=== PATIENT | female | born 1930 | race Caucasian/White ===

== ENCOUNTER 2016-12-16 18:50 | Emergency (ER) | payer MEDICAID ==
[~2016-12-16] VITALS: Ht 162.6 cm; Wt 60.0 kg
[~2016-12-16 18:50] MED LIST: ASPI-664 PO; ATOR20TA38 PO; BACTDS PO; HYD25 PO; LANT3I SC; METO-429 PO
[2016-12-16 19:43] VITALS: Ht 162.6 cm; Wt 60.0 kg
[2016-12-16] MEDS ORDERED: TETRACAINE 0.5% 15 ML OPH BOTH EYES ONE (22:00)
--- NOTE | 2016-12-17 00:26 | RADRPT ---
PROCEDURE: CT BRAIN WITHOUT CONTRAST CLINICAL INDICATION: 86-year-old female with right temporal headaches and ear pain. TECHNIQUE: The study was performed utilizing [employer] VCT 64-slice CT scanner. Direct axial sections were obtained from the foramen magnum to the vertex without the use of intravenous contrast material. Sagittal and coronal reformations were obtained. Automated exposure control and iterativ e reconstruction techniques were utilized for this examination. The images were viewed on a PACS [employer]. CTD/vol = 42.9 mGy; Total Exam DLP = 810.3 mGy-cm. COMPARISON: None. FINDINGS: There is moderate degree of diffuse cortical and central atrophy with compensatory ventricular enlar gement. There is no evidence for mass effect or midline shift. There are periventricular areas of decreased density consistent with microangiopathic ischemic changes. There is no evidence for acute intra or extra-axial blood. Calcifications are seen within the intracranial carotid and vertebral a rteries bilaterally. The bony calvarium is intact. Vascular calcifications identified within the sca lp. There is mucosal thickening and air fluid levels identified within the left frontal sinus. There is mild mucosal thickening within the dependent portion of the maxillary sinuses bilaterally. The mastoid air cells and middle ears are without significant soft tissue. IMPRESSION: 1. Moderate diffuse atrophy. 2. Microangiopathic ischemic changes. 3. Vascular calcifications. 4. Left frontal sinus disease. .Pineda Singh MD, Date Time Electronically viewed and signed by .Pineda Singh MD, on 12/17/2016 00:26 .M/
--- NOTE | 2016-12-17 00:30 | ERD ---
ER Documentation Chief Complaint Date/Time DATE: 12/17/16 TIME: 00:28 Chief Complaint right ear pain w/ sore throat x 1 week HPI This is an 86-year-old female presents to the emergency room for evaluation of right-sided ear pain and sore throat for 1 weeks duration. Patient states that the ear pain is an achy pain sharp pain and she does hear a popping in her right ear. She denies any radiation of the pain. Denies any fever and came to the ER for evaluation. She is also denying any trauma to the ear or hearing loss ROS All systems reviewed and are negative except as per history of present illness. Medications Home Meds Reported Medications Hydrochlorothiazide* (Hydrochlorothiazide*) 25 Mg Tab, 25 MG PO DAILY, #30 TAB 10/17/16 Metoprolol Tartrate* (Lopressor*) 50 Mg Tab, 50 MG PO BID, #60 TAB 10/17/16 Atorvastatin Calcium* (Atorvastatin Calcium*) 20 Mg Tablet, 20 MG PO QHS, #30 TAB 10/17/16 Aspirin* (Aspirin* EC) 81 Mg Tablet.dr, 81 MG PO DAILY, TAB 10/17/16 Insulin Glargine* (Lantus*) 100 Unit/Ml Soln, 30 UNIT SC QHS, #1 VIAL 10/17/16 Discontinued Scripts Sulfamethoxazole-Trimethoprim* (Bactrim* DS) 800-160 Mg Tab, 1 TAB PO BID for 10 Days, TAB Prov:KELSEY ZACARIAS DO 10/17/16 Allergies Allergies: Coded Allergies: No Known Allergy (Unverified , 12/16/16) PMhx/Soc History of Surgery: Yes (RT HIP SURGERY ) Anesthesia Reaction: No Hx Neurological Disorder: No Hx Respiratory Disorders: No Hx Cardiac Disorders: No Hx Psychiatric Problems: No Hx Miscellaneous Medical Probl: Yes (DM, DYSLIPIDEMIA) Hx Alcohol Use: No Hx Substance Use: No Hx Tobacco Use: No Smoking Status: Never smoker Physical Exam Vitals Vital Signs Date Time Temp Pulse Resp B/P Pulse Ox O2 Delivery O2 Flow Rate FiO2 12/16/16 19:43 98.3 54 20 132/55 97 Physical Exam Const: No acute distress Head: Atraumatic Eyes: Normal Conjunctiva ENT: Right tympanic membrane mildly erythematous compared to the left, no mastoid bone tenderness normal External Ears, Nose and Mouth. Neck: Full range of motion..~ No meningismus. Resp: Clear to auscultation bilaterally Cardio: Regular rate and rhythm, no murmurs Abd: Soft, non tender, non distended. Normal bowel sounds Skin: No petechiae or rashes Back: No midline or flank tenderness Ext: No cyanosis, or edema Neur: Awake and alert Psych: Normal Mood and Affect Results 24 hrs Current Medications Medications (Trade) Dose Ordered Sig/Crow Route PRN Reason Start Time Stop Time Status Last Admin Dose Admin Tetracaine HCl (Tetracaine 0.5% Oph) 1 drop ONCE ONCE BOTH EYES 12/16/16 22:00 12/16/16 22:01 DC Procedures/MDM CT head without: 1. Moderate diffuse atrophy. 2. Microangiopathic ischemic changes. 3. Vascular calcifications. 4. Left frontal sinus disease. This 86-year-old female presents to the ER for evaluation of right-sided ear pain. I did note mild erythema of the right eardrum compared to the left. The patient was given tetracaine eardrops with moderate relief of her pain. CT of her head is normal does not show any acute bleeding. The patient will be discharged at this time with a prescription for amoxicillin at this time and instructions to follow-up with her primary care physician. She will also be given Tylenol 3 for breakthrough pain Departure Diagnosis: Primary Impression: Otitis media, right Additional Impression: Multiple complaints Condition: Stable KELSEY ZACARIAS DO Dec 17, 2016 00:30
[2016-12-17] MEDS ORDERED: ACET1TAB40 PO (00:31)
[2016-12-17] MEDS ORDERED: AMO500 PO (00:31)
[2016-12-17] MEDS ORDERED: NPH10OT RIGHT EAR (00:31)
[2016-12-17 00:45] VITALS: BP 135/58; PULSE 55; RESP 20; TEMP 98.3
== END 2016-12-17 00:45 | disposition home or self-care (01) ==
LOC: E/R 18:50
DX: H92.01 Otalgia, right ear (principal); J02.9 Acute pharyngitis, unspecified; E11.9 Type 2 diabetes mellitus without complications; R51 Headache; Z79.4 Long term (current) use of insulin; Z79.82 Long term (current) use of aspirin
CPT/HCPCS: 70450; Z7502; Z7610

== ENCOUNTER 2016-12-27 16:58 | Emergency (ER) | payer MEDICAID ==
[~2016-12-27] VITALS: Wt 59.8 kg
[~2016-12-27 16:58] MED LIST changes: +ACET1TAB40 PO; +AMO500 PO; -BACTDS PO; +NPH10OT RIGHT EAR
[2016-12-27] MEDS ORDERED: SOD CHLORIDE 0.9% 500 ML IV STA (17:15)
[2016-12-27 17:54] LABS: BASOPHILS % 0.1 % (0.0-2.0); EOSINOPHILS # 0.1 10^3/ul (0.0-0.5); EOSINOPHILS % 1.5 % (0.0-7.0); HEMATOCRIT 31.8 % (37.0-47.0); HEMOGLOBIN 10.9 g/dl (12.0-16.0); LYMPHOCYTES % 11.9 % (15.0-51.0); MEAN CORPUSCULAR HEMOGLOBIN 31.7 pg (29.0-33.0); MEAN CORPUSCULAR HGB CONC 34.2 g/dl (32.0-37.0); MEAN CORPUSCULAR VOLUME 92.8 fl (82.0-101.0); MEAN PLATELET VOLUME 9.6 fl (7.4-10.4); MONOCYTE # 0.3 10^3/ul (0.3-0.9); MONOCYTES % 3.6 % (0.0-11.0); NEUTROPHIL # 7.1 10^3/ul (1.6-7.5); NEUTROPHILS % 82.9 % (39.0-77.0); PLATELET COUNT 127 10^3/UL (140-440); RED BLOOD COUNT 3.43 10^6/ul (4.20-5.40); RED CELL DISTRIBUTION WIDTH 13.1 % (11.5-14.5); UNCORRECTED WBC 8.6 10^3/ul (4.8-10.8); WHITE BLOOD COUNT 8.6 10^3/ul (4.8-10.8)
[2016-12-27 17:55] LABS: CONDITION 1
[2016-12-27 18:02] LABS: ALBUMIN 4.1 g/dl (3.3-4.9); POTASSIUM 4.4 mmol/L (3.5-5.1)
[2016-12-27 18:04] LABS: ALBUMIN/GLOBULIN RATIO 1.13; BILIRUBIN,INDIRECT 0.6 mg/dl (0-1.1); BILIRUBIN,TOTAL 0.6 mg/dl (0.2-1.3); CREATININE 1.33 mg/dl (0.44-1.00); TOTAL PROTEIN 7.7 g/dl (6.1-8.1)
[2016-12-27 18:05] LABS: CALCIUM 9.1 mg/dl (8.4-10.2)
--- NOTE | 2016-12-27 18:49 | ERD ---
ER Documentation Chief Complaint Date/Time DATE: 12/27/16 TIME: 18:47 Chief Complaint DIARRHEA, ABD PAIN, NO VOMITING HPI This is an 86-year-old female presents to the emergency room for diarrhea and abdominal cramping for 1 days duration. Patient denies any nausea, vomiting or blood in her stool. The patient has been drinking Pedialyte and denies any trauma to the abdomen and came to the emergency room for further evaluation. ROS All systems reviewed and are negative except as per history of present illness. Medications Home Meds Active Scripts Acetaminophen with Codeine (Acetaminophen-Cod #3 Tablet) 1 Each Tablet, 1 TAB PO Q6H, #7 TAB Prov:RELLGRACIELAPATRICE DO 12/17/16 Neomycin/Polymyxin/Hydrocort* (Cortisporin* Otic) 10 Ml Susp, 4 DROP RIGHT EAR QID for 7 Days, EA Prov:KELSEY ZACARIAS DO 12/17/16 Amoxicillin* (Amoxicillin*) 500 Mg Cap, 500 MG PO TID for 7 Days, CAP Prov:KELSEY ZACARIAS DO 12/17/16 Reported Medications Hydrochlorothiazide* (Hydrochlorothiazide*) 25 Mg Tab, 25 MG PO DAILY, #30 TAB 10/17/16 Metoprolol Tartrate* (Lopressor*) 50 Mg Tab, 50 MG PO BID, #60 TAB 10/17/16 Atorvastatin Calcium* (Atorvastatin Calcium*) 20 Mg Tablet, 20 MG PO QHS, #30 TAB 10/17/16 Aspirin* (Aspirin* EC) 81 Mg Tablet.dr, 81 MG PO DAILY, TAB 10/17/16 Insulin Glargine* (Lantus*) 100 Unit/Ml Soln, 30 UNIT SC QHS, #1 VIAL 10/17/16 Allergies Allergies: Coded Allergies: No Known Allergy (Unverified , 12/16/16) PMhx/Soc History of Surgery: Yes (RT HIP SURGERY ) Anesthesia Reaction: No Hx Neurological Disorder: No Hx Respiratory Disorders: No Hx Cardiac Disorders: No Hx Psychiatric Problems: No Hx Miscellaneous Medical Probl: Yes (DM, DYSLIPIDEMIA) Hx Alcohol Use: No Hx Substance Use: No Hx Tobacco Use: No Smoking Status: Never smoker Physical Exam Vitals Vital Signs Date Time Temp Pulse Resp B/P Pulse Ox O2 Delivery O2 Flow Rate FiO2 12/27/16 17:00 98.5 88 18 190/77 99 Physical Exam INITIAL VITAL SIGNS: Reviewed by me GENERAL: The patient is well developed and appropriate for usual state of health in no apparent distress HEENT: Pupils equal, round, and reactive to light. EOMI. There is no scleral icterus. NECK: C-spine is soft and supple, there is no meningismus. There is no cervical lymphadenopathy. LUNGS: Clear to auscultation bilaterally. There are no rales, wheezes or rhonchi. HEART: Regular rate and rhythm, no murmurs, clicks, rubs or gallops. ABDOMEN: Soft, non-tender, non-distended. There are bowel sounds in all four quadrants. No rebound or guarding. EXTREMITIES: There is no peripheral cyanosis or edema. No focal swelling or erythema. NEUROLOGICAL: The patient moves all four extremities with 5/5 strength. Cranial nerves II - XII are intact. Normal gait. Alert and oriented SKIN: There is no apparent rash or petechiae. HEME/LYMPHATIC: There is no evidence of excessive bruising or lymphedema. PSYCHIATRIC: The patient does not appear anxious or depressed. Result Diagram: 12/27/16 17312/27/16 1730 Results 24 hrs Laboratory Tests Test 12/27/16 17:30 Alanine Aminotransferase (ALT/SGPT) 23IU/L Albumin 4.1g/dl Albumin/Globulin Ratio 1.13 Alkaline Phosphatase 91IU/L Anion Gap 17 Aspartate Amino Transf (AST/SGOT) 25IU/L Basophils # 0.010^3/ul Basophils % 0.1% Blood Urea Nitrogen 31mg/dl Calcium Level 9.1mg/dl Carbon Dioxide Level 22mmol/L Chloride Level 107mmol/L Creatinine 1.33mg/dl Direct Bilirubin 0.00mg/dl Eosinophils # 0.110^3/ul Eosinophils % 1.5% Globulin 3.60g/dl Glucose Level 169mg/dl Hematocrit 31.8% Hemoglobin 10.9g/dl Indirect Bilirubin 0.6mg/dl Lipase 74U/L Lymphocytes # 1.010^3/ul Lymphocytes % 11.9% Mean Corpuscular Hemoglobin 31.7pg Mean Corpuscular Hemoglobin Concent 34.2g/dl Mean Corpuscular Volume 92.8fl Mean Platelet Volume 9.6fl Monocytes # 0.310^3/ul Monocytes % 3.6% Neutrophils # 7.110^3/ul Neutrophils % 82.9% Nucleated Red Blood Cells # 0.010^3/ul Nucleated Red Blood Cells % 0.0/100WBC Platelet Count 86815^3/UL Potassium Level 4.4mmol/L Red Blood Count 3.4310^6/ul Red Cell Distribution Width 13.1% Sodium Level 142mmol/L Total Bilirubin 0.6mg/dl Total Protein 7.7g/dl White Blood Count 8.610^3/ul Current Medications Medications (Trade) Dose Ordered Sig/Crow Route PRN Reason Start Time Stop Time Status Last Admin Dose Admin Sodium Chloride (NS) 500 ml @ 500 mls/hr Q1H STAT IV 12/27/16 17:15 12/27/16 18:14 DC 12/27/16 17:27 Procedures/MDM This 86-year-old presents to the emergency room for evaluation of diarrhea for 1 days duration. This patient has no nausea, vomiting here in the emergency room. She did have lab work drawn which shows minor renal insufficiency. She was given 1 L of fluids. She is in no acute distress at this time. She is hemodynamically stable. I advised the patient and the patient's family to continue supportive care with p.o. fluids and Pedialyte. Differential diagnoses entertained was broad with potential high acuity. Patient has been evaluated for appendicitis, cholecystitis, and other high risk medical and surgical causes of abdominal pain. Ultimately the patient's evaluation is nondiagnostic. Based on the patient's lack of risk factors, as well as the patient's clinical, laboratory, and imaging data, the patient appears to be low risk for these high risk causes of abdominal pain. Departure Diagnosis: Primary Impression: Diarrhea with dehydration Additional Impression: Normocytic anemia Condition: Stable RELLGRACIELAPATRICE PAIGE Dec 27, 2016 18:49
[2016-12-27 19:10] VITALS: BP 140/57; PULSE 69; RESP 15
== END 2016-12-27 19:26 | disposition home or self-care (01) ==
LOC: E/R 16:58
DX: R19.7 Diarrhea, unspecified (principal); E11.9 Type 2 diabetes mellitus without complications; E86.0 Dehydration; D64.9 Anemia, unspecified; Z79.82 Long term (current) use of aspirin; Z79.4 Long term (current) use of insulin
CPT/HCPCS: 80053; 83690; 85025; 96360; 96361; J7040; Z7502

== ENCOUNTER 2017-05-31 18:27 | Emergency (ER) | payer SELFPAY ==
[~2017-05-31] VITALS: Wt 60.0 kg
== END 2017-05-31 21:40 | disposition left against medical advice (07) ==
LOC: E/R 18:27
DX: Z53.21 Procedure and treatment not carried out due to patient leaving prior to being seen by health care provider (principal)

== ENCOUNTER 2017-12-09 12:18 | Inpatient (IN) | END 2017-12-10 15:56 | disposition home or self-care (01) | DRG 313 ==

== ENCOUNTER 2018-01-27 02:37 | Inpatient (IN) | END 2018-01-29 14:10 | disposition home or self-care (01) | DRG 304 ==

== ENCOUNTER 2018-01-29 17:08 | Emergency (ER) | END 2018-01-29 21:42 | disposition home or self-care (01) ==

== ENCOUNTER 2018-02-18 10:31 | Emergency (ER) | END 2018-02-18 12:31 | disposition home or self-care (01) ==

== ENCOUNTER 2018-04-17 04:56 | Emergency (ER) | END 2018-04-17 06:48 | disposition home or self-care (01) ==

== ENCOUNTER 2018-05-21 01:43 | Emergency (ER) | END 2018-05-21 09:36 | disposition home or self-care (01) ==

== ENCOUNTER 2018-06-27 13:23 | Emergency (ER) | END 2018-06-27 17:35 | disposition home or self-care (01) ==

== ENCOUNTER 2018-07-15 15:50 | Emergency (ER) | END 2018-07-15 21:04 | disposition home or self-care (01) ==